=== PATIENT | male | born 1940 | race Two or more races ===

== ENCOUNTER 2016-12-21 23:45 | Inpatient (IN) | payer OTHER, BC ==
[~2016-12-21] VITALS: Ht 170.2 cm; Wt 73.0 kg
[~2016-12-21 23:45] MED LIST: ATOR40TA52 PO; CLOP75TA41 PO; DOCU100T15 PO; FAM20T PO; FER325T PO; FOLI1TAB51 PO; FURO40TA4 PO; MIDO5TAB16 PO; NOR5T PO; PRED1SUS3 OP; QUET25TA37 PO
[2016-12-22] VITALS (66 sets, daily range): BP systolic 79–163; BP diastolic 40–87
[2016-12-22] MEDS: MORPHINE SULF INJ 2 MG/ML SYRINGE 1ML IV PRN (01:57)
[2016-12-22] MEDS: LORazepam 2MG/ML-1ML VIAL IV PRN (01:58)
[2016-12-22 04:08] LABS: Basophils # (auto) 0 uL; Basophils % (auto) 0.3 % (0.0-2.0); DEFINITIVE VIEW TRANSMISSION; Eosinophils # (auto) 0.1 uL; Eosinophils % (auto) 1.2 % (0.0-7.0); Hematocrit 23.5 % (41.0-53.0); Hemoglobin 7.8 g/dL (13.5-17.5); Lymphocytes # (auto) 0.6 uL; Lymphocytes % (auto) 10.4 % (10.0-50.0); Mean Corpuscular Hemoglobin 29.4 pg (28.0-32.0); Mean Corpuscular Hgb Conc. 33.1 g/dL (32.0-36.0); Mean Corpuscular Volume 88.8 fL (80.0-100.0); Mean Platelet Volume 9.2 fL (7.4-10.4); Monocytes # (auto) 0.6 uL; Monocytes % (auto) 11.1 % (0.0-12.0); Neutrophils # (auto) 4.4 uL; Platelet Count (auto) 169 10^3/uL (140-450); Red Cell Distribution Width 19.4 % (11.6-16.0); White Blood Cell 5.8 10^3/uL (4.4-10.8)
[2016-12-22 04:34] LABS: BUN/Creatinine Ratio 9.2; Calcium 7.6 mg/dL (8.5-10.1)
[2016-12-22 04:49] LABS: INR 1.32 (0.9-1.15); Prothrombin Time 13.6 sec (9.37-12.3)
[2016-12-22] MEDS ORDERED: NITROGLYCERIN 0.4 MG SL TAB SL PRN (05:00)
[2016-12-22] MEDS ORDERED: MORPHINE SULF INJ 2 MG/ML SYRINGE 1ML IV PRN (05:00)
[2016-12-22] MEDS ORDERED: Diabetisource AC 1 Liter GT SCH (13:00)
[2016-12-22] MEDS ORDERED: DEXTROSE (50%) 50ML SYRG IV PRN (13:00)
[2016-12-22] MEDS ORDERED: VANCOMYCIN PER PHARMACY 0 MG IV SCH (13:00)
[2016-12-22] MEDS ORDERED: PANTOPRAZOLE 40 MG TAB PO SCH (13:15)
[2016-12-22] MEDS ORDERED: VANCOMYCIN 1GM/250ML D5W 250 ML IV SCH (14:00)
[2016-12-22] MEDS: MIDODRINE HCL 10 MG TAB PO SCH ×2 (14:51→21:53)
[2016-12-22] MEDS: cefTAZidime 2 GM in D5W 5% 100 ML IV SCH (16:14)
[2016-12-22] MEDS: InsuLIN REG 1unit/0.01ml Soln (100units/ml) SC SCH (17:51)
[2016-12-22] MEDS: ACCU-CHEK COMFORT CURVE STRIP VI SCH (17:51)
[2016-12-23] VITALS (45 sets, daily range): BP systolic 139–181; BP diastolic 57–96
[2016-12-23] MEDS: cefTAZidime 2 GM in D5W 5% 100 ML IV SCH ×2 (03:01→15:00)
[2016-12-23 03:57] LABS: Basophils # (auto) 0 uL; Basophils % (auto) 0.1 % (0.0-2.0); DEFINITIVE VIEW TRANSMISSION; Eosinophils # (auto) 0.3 uL; Eosinophils % (auto) 6.1 % (0.0-7.0); Hematocrit 25.3 % (41.0-53.0); Hemoglobin 8.2 g/dL (13.5-17.5); Lymphocytes # (auto) 0.8 uL; Lymphocytes % (auto) 16.4 % (10.0-50.0); Mean Corpuscular Hemoglobin 29.3 pg (28.0-32.0); Mean Corpuscular Hgb Conc. 32.5 g/dL (32.0-36.0); Mean Corpuscular Volume 90.1 fL (80.0-100.0); Monocytes # (auto) 0.6 uL; Monocytes % (auto) 11.6 % (0.0-12.0); Neutrophils # (auto) 3.3 uL; Neutrophils % (auto) 65.8 % (37.0-80.0); Platelet Count (auto) 151 10^3/uL (140-450); Red Cell Distribution Width 19.6 % (11.6-16.0); SUSPECT VIEW TRANSMISSION
[2016-12-23 04:23] LABS: Albumin 2.3 g/dL (3.4-5.0); Calcium 7.7 mg/dL (8.5-10.1); Potassium 3.5 mmol/L (3.5-5.1)
[2016-12-23 04:39] LABS: BUN/Creatinine Ratio 9.5; Bilirubin, Total 0.5 mg/dL (0.2-1.0); Total Protein 5.9 g/dL (6.4-8.2)
[2016-12-23] MEDS: MIDODRINE HCL 10 MG TAB PO SCH (06:06)
[2016-12-23] MEDS: InsuLIN REG 1unit/0.01ml Soln (100units/ml) SC SCH ×4 (06:20→17:59)
[2016-12-23] MEDS: ACCU-CHEK COMFORT CURVE STRIP VI SCH ×5 (06:20→23:49)
[2016-12-23] MEDS: OMEPRAZOLE 20MG/10ML ORAL SUSP GT SCH (10:04)
[2016-12-23] MEDS: LORazepam 2MG/ML-1ML VIAL IV PRN ×2 (12:23→23:49)
[2016-12-23 12:44] LABS: Urine Bilirubin Negative (Negative); Urine Color Yellow (Yellow); Urine Ketone Negative (Negative); Urine Mucus FEW (None Seen); Urine Nitrite Negative (Negative); Urine RBC 492 /hpf (0 - 3); Urine Squamous Epithelial Cell FEW /hpf (<5); Urine Urobilinogen Normal (Negative); Urine pH 6.5 (5.0-8.0)
[2016-12-23] MEDS ORDERED: LABETALOL HCL 5 MG/ML 4ML SYRINGE IV PRN (12:45)
[2016-12-23] MEDS ORDERED: METOPROLOL TARTRATE 25 MG TAB PO ONE (12:45)
[2016-12-23 12:46] LABS: Urine Blood 2+ /uL (Negative); Urine Glucose 3+ mg/dL (Normal)
[2016-12-23] MEDS ORDERED: EPOETIN ALFA 10,000 UNIT/1 ML VIAL IV ONE (15:15)
[2016-12-23] MEDS: MORPHINE SULF INJ 2 MG/ML SYRINGE 1ML IV PRN (19:43)
[2016-12-23] MEDS: METOPROLOL TARTRATE 25 MG TAB PO SCH (22:06)
[2016-12-24] VITALS (22 sets, daily range): BP systolic 91–179; BP diastolic 56–85
[2016-12-24] MEDS: MORPHINE SULF INJ 2 MG/ML SYRINGE 1ML IV PRN (01:07)
[2016-12-24] MEDS: cefTAZidime 2 GM in D5W 5% 100 ML IV SCH ×2 (03:20→15:21)
[2016-12-24] MEDS: ACCU-CHEK COMFORT CURVE STRIP VI SCH ×4 (06:11→23:38)
[2016-12-24] MEDS: InsuLIN REG 1unit/0.01ml Soln (100units/ml) SC SCH ×5 (06:12→23:59)
[2016-12-24] MEDS: METOPROLOL TARTRATE 25 MG TAB PO SCH ×2 (10:00→21:49)
[2016-12-24] MEDS: OMEPRAZOLE 20MG/10ML ORAL SUSP GT SCH (10:00)
[2016-12-25] VITALS (7 sets, daily range): BP systolic 100–155; BP diastolic 39–66
[2016-12-25] MEDS: cefTAZidime 2 GM in D5W 5% 100 ML IV SCH ×2 (03:26→15:16)
[2016-12-25] MEDS: ACCU-CHEK COMFORT CURVE STRIP VI SCH ×4 (05:52→23:44)
[2016-12-25] MEDS: InsuLIN REG 1unit/0.01ml Soln (100units/ml) SC SCH ×3 (05:54→18:00)
[2016-12-25 06:31] LABS: Basophils # (auto) 0 uL; Basophils % (auto) 0.3 % (0.0-2.0); Eosinophils # (auto) 0.2 uL; Eosinophils % (auto) 2.8 % (0.0-7.0); Hematocrit 32.1 % (41.0-53.0); Hemoglobin 11.1 g/dL (13.5-17.5); Lymphocytes % (auto) 16.6 % (10.0-50.0); Mean Corpuscular Hemoglobin 31.3 pg (28.0-32.0); Mean Corpuscular Hgb Conc. 34.6 g/dL (32.0-36.0); Mean Corpuscular Volume 90.5 fL (80.0-100.0); Mean Platelet Volume 9.9 fL (7.4-10.4); Monocytes # (auto) 0.8 uL; Monocytes % (auto) 12.3 % (0.0-12.0); Neutrophils # (auto) 4.3 uL; Platelet Count (auto) 166 10^3/uL (140-450); Red Cell Distribution Width 17.9 % (11.6-16.0); White Blood Cell 6.3 10^3/uL (4.4-10.8)
[2016-12-25 06:49] LABS: Calcium 8.3 mg/dL (8.5-10.1); Potassium 3.2 mmol/L (3.5-5.1)
[2016-12-25 06:52] LABS: BUN/Creatinine Ratio 7.2
[2016-12-25] MEDS: LORazepam 2MG/ML-1ML VIAL IV PRN ×2 (08:00→22:09)
[2016-12-25] MEDS: OMEPRAZOLE 20MG/10ML ORAL SUSP GT SCH (09:36)
[2016-12-25] MEDS: METOPROLOL TARTRATE 25 MG TAB PO SCH ×2 (09:36→22:09)
[2016-12-26] VITALS (8 sets, daily range): BP systolic 94–150; BP diastolic 55–76
[2016-12-26] MEDS: cefTAZidime 2 GM in D5W 5% 100 ML IV SCH ×2 (03:00→14:57)
[2016-12-26] MEDS: ACCU-CHEK COMFORT CURVE STRIP VI SCH ×4 (05:42→23:42)
[2016-12-26] MEDS: InsuLIN REG 1unit/0.01ml Soln (100units/ml) SC SCH ×5 (06:00→23:42)
[2016-12-26] MEDS: METOPROLOL TARTRATE 25 MG TAB PO SCH ×2 (14:54→21:20)
[2016-12-26] MEDS: OMEPRAZOLE 20MG/10ML ORAL SUSP GT SCH (15:00)
[2016-12-26] MEDS ORDERED: VANCOMYCIN 1GM/250ML D5W 250 ML IV ONE (16:00)
[2016-12-27] MEDS: cefTAZidime 2 GM in D5W 5% 100 ML IV SCH ×2 (02:21→15:06)
[2016-12-27 04:00] VITALS: BP 109/64
[2016-12-27] MEDS: ACCU-CHEK COMFORT CURVE STRIP VI SCH ×3 (05:41→17:33)
[2016-12-27] MEDS: InsuLIN REG 1unit/0.01ml Soln (100units/ml) SC SCH ×3 (05:47→17:33)
[2016-12-27 07:55] VITALS: BP 115/66
[2016-12-27] MEDS: METOPROLOL TARTRATE 25 MG TAB PO SCH ×2 (09:55→22:00)
[2016-12-27] MEDS: OMEPRAZOLE 20MG/10ML ORAL SUSP GT SCH (10:04)
[2016-12-27 11:44] VITALS: BP 128/58
[2016-12-27 15:52] VITALS: BP 120/62
[2016-12-27 20:00] VITALS: BP 124/56
[2016-12-27] MEDS: MORPHINE SULF INJ 2 MG/ML SYRINGE 1ML IV PRN (23:40)
== END 2016-12-28 00:06 | DRG 208 ==
LOC: ICU WEST 23:45 → DOU IN ICU 12-24 14:39
PROVIDERS: ADMIT Internal Medicine; ATTEND Internal Medicine
PROC: 30233N1 Transfusion of Nonautologous Red Blood Cells into Peripheral Vein, Percutaneous Approach (ICD-10-PCS; 2016-12-23)
PROC: 5A1945Z Respiratory Ventilation, 24-96 Consecutive Hours (ICD-10-PCS; principal; 2016-12-26)
PROC: 5A1D60Z (ICD-10-PCS; 2016-12-26)
DX: J96.20 Acute and chronic respiratory failure, unspecified whether with hypoxia or hypercapnia (principal); N18.6 End stage renal disease; E43 Unspecified severe protein-calorie malnutrition; E44.0 Moderate protein-calorie malnutrition; I13.2 Hypertensive heart and chronic kidney disease with heart failure and with stage 5 chronic kidney disease, or end stage renal disease; I50.22 Chronic systolic (congestive) heart failure; J44.9 Chronic obstructive pulmonary disease, unspecified; Z99.2 Dependence on renal dialysis; E11.22 Type 2 diabetes mellitus with diabetic chronic kidney disease; I25.10 Atherosclerotic heart disease of native coronary artery without angina pectoris; D63.8 Anemia in other chronic diseases classified elsewhere; Z93.0 Tracheostomy status; Z86.74 Personal history of sudden cardiac arrest; Z88.8 Allergy status to other drugs, medicaments and biological substances; Z68.25 Body mass index [BMI] 25.0-25.9, adult
CPT/HCPCS: 36415; 36600; 71010; 80048; 80053; 80202; 81001; 82805; 82962; 83735; 85025; 85610; 85730; 86850; 86900; 86901; 86920; 87040; 87070; 87081; 87086; 87205; 90935; 92610; 93970; 94002; 94003; 94640; 97001; J0885; J1815; J3490; J7060